=== PATIENT | male | born 1995 | race Caucasian/White ===

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

== ENCOUNTER → 2017-04-09 14:59 | Emergency (ER) | payer OTHER | END | disposition left against medical advice (07) | LOC: ED 14:59 | DX: J02.9 Acute pharyngitis, unspecified (principal); Z53.21 Procedure and treatment not carried out due to patient leaving prior to being seen by health care provider ==

== ENCOUNTER 2017-08-31 11:18 | Emergency (ER) | payer BC, OTHER ==
[2017-08-31 14:58] LABS: Hematocrit 42 % (42-52); Hemoglobin 14.4 g/dl (14.0-18.0); Mean Corpuscular Volume 87 fL (80-94); Red Blood Count 4.88 10^6/ul (4.0-5.4); White Blood Count 4.5 10^3/ul (3.5-10.8)
[2017-08-31 14:59] LABS: ABS Basophils 0 10^3/ul (0-0.2); ABS Eosinophils 0.1 10^3/ul (0-0.6); ABS Lymphocytes 1.7 10^3/ul (1.0-4.8); ABS Monocytes 0.4 10^3/ul (0-0.8); ABS Neutrophils 2.3 10^3/ul (1.5-7.7); ABS Nucleated RBC 0 10^3/ul; Eosinophil % 1.3 % (0-6); Mean Corpuscular HGB Conc 34 g/dl (31-36); Mean Corpuscular Hemoglobin 29 pg (27-31); Mean Platelet Volume 8.7 um3 (7.4-10.4); Nucleated Red Blood Cells % 0.3; Platelet Count 205 10^3/ul (150-450); Red Cell Distribution Width 14 % (10.5-15)
[2017-08-31 15:03] LABS: Urine Appearance Clear; Urine Blood Negative (Negative); Urine Color Yellow; Urine Ketones Negative (Negative); Urine Protein Negative (Negative); Urine Specific Gravity 1.024 (1.010-1.030); Urine Urobilinogen Negative (Negative)
[2017-08-31 15:05] LABS: INR 1.11 (0.77-1.02)
--- NOTE | 2017-08-31 15:23 | RAD ---
HISTORY: Cholecystitis COMPARISONS: CT dated July 01, 2016 TECHNIQUE: Multiple transverse and longitudinal ultrasound images were obtained of the right upper quadrant of the abdomen using grayscale and color Doppler imaging. FINDINGS: LIVER: The liver is normal in shape, size, contour, and echogenicity. There are no focal parenchymal masses. There is normal hepatopedal flow of the portal vein on Doppler imaging. BILIARY TREE: There is no intrahepatic or extrahepatic biliary dilatation. The common duct measures 0.1 cm. GALLBLADDER: The gallbladder is well-visualized. There is no cholelithiasis, gallbladder wall thickening, pericholecystic fluid, or sonographic Olsen sign. PANCREAS: The head of the pancreas is unremarkable. The tail of the pancreas is not well visualized secondary to overlying bowel gas. RIGHT KIDNEY: The right kidney is normal in shape, size, contour, and echogenicity. There is no hydronephrosis or nephrolithiasis. The right kidney measures 9.7 x 4.2 x 5.2 cm. AORTA AND IVC: The aorta and IVC are unremarkable. FLUID: There are no pleural effusions. There is no free fluid within the hepatorenal recess. OTHER FINDINGS: None. IMPRESSION: NO ACUTE SONOGRAPHIC PATHOLOGY OF THE VISUALIZED PORTION OF THE ABDOMEN.
[2017-08-31 15:35] LABS: EGFR Non-African American 147.7 (>60)
--- NOTE | 2017-08-31 16:06 | ED ---
Geovanny Park Stephanie, scribed for Lloyd Boone on 08/31/17 at 1434 . Abdominal Pain/Male - HPI Summary HPI Summary: The pt is a 21 y/o M presenting to the ED with c/o RUQ pain that began on . Symptoms include painful BP and green stools. The pt denies vomiting. Aggravating factors include PO intake. The pt states after he eats anything he feels abd tightness and nausea. The pt has a hx of nausea. HE states his symptoms began after switching his anxiety medications. The pt is currently having pain. - History of Current Complaint Chief Complaint: EDAbdPain Stated Complaint: ABD PAIN-2 WEEKS Time Seen by Provider: 08/31/17 14:10 Hx Obtained From: Patient Onset/Duration: Gradual Onset, Lasting Weeks - 2, Still Present Timing: Constant Severity Currently: Moderate Pain Intensity: 6 Pain Scale Used: 0-10 Numeric Location: Epigastric Radiates: No Aggravating Factor(s): Food Alleviating Factor(s): Nothing Associated Signs And Symptoms: Positive: Nausea. Negative: Vomiting - Allergies/Home Medications Allergies/Adverse Reactions: Allergies Allergy/AdvReac Type Severity Reaction Status Date / Time No Known Allergies Allergy Verified 08/31/17 11:23 Home Medications: Home Medications Paroxetine CR (NF) [Paxil CR (NF)] 12.5 mg PO DAILY 08/31/17 [History Confirmed 08/31/17] Venlafaxine EXT RELEASE CAP* [Effexor Xr CAP*] 75 mg PO DAILY 08/31/17 [History Confirmed 08/31/17] PMH/Surg Hx/FS Hx/Imm Hx Endocrine/Hematology History: Denies: Hx Diabetes Cardiovascular History: Denies: Hx Hypertension History: Denies: Hx Dialysis, Hx Renal Disease Sensory History: Denies: Hx Legally Blind EENT History: Denies: Hx Deafness - Surgical History Surgery Procedure, Year, and Place: NONE - Immunization History Date of Tetanus Vaccine: unk Date of Influenza Vaccine: fall 2015 Infectious Disease History: No Infectious Disease History: Denies: Traveled Outside the [place] in Last 30 Days - Family History Known Family History: Negative: Diabetes, Renal Disease - Social History Occupation: Student Lives: Dormitory/Roommates Alcohol Use: None Hx Substance Use: No Substance Use Type: Reports: None Hx Tobacco Use: No Smoking Status (MU): Never Smoked Tobacco Have You Smoked in the Last Year: No Review of Systems Negative: Fever Positive: Abdominal Pain, Nausea. Negative: Vomiting Negative: Slurred Speech All Other Systems Reviewed And Are Negative: Yes Physical Exam - Summary Physical Exam Summary: Appearance: Well appearing, no pain distress Skin: warm, dry, reflects adequate perfusion Head/face: normal Eyes: EOMI, BEN ENT: normal Neck: supple, non-tender Respiratory: CTA, breath sounds present Cardiovascular: RRR, pulses symmetrical Abdomen: mild epigastric tenderness, soft Bowel: present Musculoskeletal: normal, strength/ROM intact Neuro: normal, sensory motor intact, A&Ox3 Triage Information Reviewed: Yes Vital Signs On Initial Exam: Initial Vitals Temp Pulse Resp BP Pulse Ox 97.2 F 53 14 109/65 100 08/31/17 11:23 08/31/17 11:23 08/31/17 11:23 08/31/17 11:23 08/31/17 11:23 Vital Signs Reviewed: Yes Diagnostics - Vital Signs Vital Signs Temp Pulse Resp BP Pulse Ox 08/31/17 11:23 97.2 F 53 14 109/65 100 - Laboratory Lab Results: Lab Results 08/31/17 08/31/17 08/31/17 Range/Units 14:42 14:42 14:42 WBC 4.5 (3.5-10.8) 10^3/ul RBC 4.88 (4.0-5.4) 10^6/ul Hgb 14.4 (14.0-18.0) g/dl Hct 42 (42-52) % MCV 87 (80-94) fL MCH 29 (27-31) pg MCHC 34 (31-36) g/dl RDW 14 (10.5-15) % Plt Count 205 (150-450) 10^3/ul MPV 8.7 (7.4-10.4) um3 Neut % (Auto) 51.0 (38-83) % Lymph % (Auto) 38.0 (25-47) % Bryan % (Auto) 9.1 H (0-7) % Eos % (Auto) 1.3 (0-6) % Baso % (Auto) 0.6 (0-2) % Absolute Neuts (auto) 2.3 (1.5-7.7) 10^3/ul Absolute Lymphs (auto) 1.7 (1.0-4.8) 10^3/ul Absolute Monos (auto) 0.4 (0-0.8) 10^3/ul Absolute Eos (auto) 0.1 (0-0.6) 10^3/ul Absolute Basos (auto) 0 (0-0.2) 10^3/ul Absolute Nucleated RBC 0 10^3/ul Nucleated RBC % 0.3 INR (Anticoag Therapy) 1.11 H (0.77-1.02) APTT 28.9 (26.0-36.3) seconds Sodium 139 (139-145) mmol/L Potassium 3.7 (3.5-5.0) mmol/L Chloride 105 (101-111) mmol/L Carbon Dioxide 26 (22-32) mmol/L Anion Gap 8 (2-11) mmol/L BUN 11 (6-24) mg/dL Creatinine 0.69 (0.67-1.17) mg/dL Est GFR ( Amer) 190.0 (>60) Est GFR (Non-Af Amer) 147.7 (>60) BUN/Creatinine Ratio 15.9 (8-20) Glucose 77 (70-100) mg/dL Lactic Acid (0.5-2.0) mmol/L Calcium 9.8 (8.6-10.3) mg/dL Total Bilirubin 0.60 (0.2-1.0) mg/dL AST 30 (13-39) U/L ALT 12 (7-52) U/L Alkaline Phosphatase 104 (34-104) U/L C-Reactive Protein < 1.00 (< 5.00) mg/L Total Protein 7.3 (6.4-8.9) g/dL Albumin 4.5 (3.2-5.2) g/dL Globulin 2.8 (2-4) g/dL Albumin/Globulin Ratio 1.6 (1-3) Lipase 24 (11.0-82.0) U/L Urine Color Urine Appearance Urine pH (5-9) Ur Specific [place] (1.010-1.030) Urine Protein (Negative) Urine Ketones (Negative) Urine Blood (Negative) Urine Nitrate (Negative) Urine Bilirubin (Negative) Urine Urobilinogen (Negative) Ur Leukocyte Esterase (Negative) Urine Glucose (Negative) 04/26/18 04/26/18 Range/Units 14:42 14:42 WBC (3.5-10.8) 10^3/ul RBC (4.0-5.4) 10^6/ul Hgb (14.0-18.0) g/dl Hct (42-52) % MCV (80-94) fL MCH (27-31) pg MCHC (31-36) g/dl RDW (10.5-15) % Plt Count (150-450) 10^3/ul MPV (7.4-10.4) um3 Neut % (Auto) (38-83) % Lymph % (Auto) (25-47) % Bryan % (Auto) (0-7) % Eos % (Auto) (0-6) % Baso % (Auto) (0-2) % Absolute Neuts (auto) (1.5-7.7) 10^3/ul Absolute Lymphs (auto) (1.0-4.8) 10^3/ul Absolute Monos (auto) (0-0.8) 10^3/ul Absolute Eos (auto) (0-0.6) 10^3/ul Absolute Basos (auto) (0-0.2) 10^3/ul Absolute Nucleated RBC 10^3/ul Nucleated RBC % INR (Anticoag Therapy) (0.77-1.02) APTT (26.0-36.3) seconds Sodium (139-145) mmol/L Potassium (3.5-5.0) mmol/L Chloride (101-111) mmol/L Carbon Dioxide (22-32) mmol/L Anion Gap (2-11) mmol/L BUN (6-24) mg/dL Creatinine (0.67-1.17) mg/dL Est GFR ( Amer) (>60) Est GFR (Non-Af Amer) (>60) BUN/Creatinine Ratio (8-20) Glucose (70-100) mg/dL Lactic Acid 1.1 (0.5-2.0) mmol/L Calcium (8.6-10.3) mg/dL Total Bilirubin (0.2-1.0) mg/dL AST (13-39) U/L ALT (7-52) U/L Alkaline Phosphatase (34-104) U/L C-Reactive Protein (< 5.00) mg/L Total Protein (6.4-8.9) g/dL Albumin (3.2-5.2) g/dL Globulin (2-4) g/dL Albumin/Globulin Ratio (1-3) Lipase (11.0-82.0) U/L Urine Color Yellow Urine Appearance Clear Urine pH 7.0 (5-9) Ur Specific [place] 1.024 (1.010-1.030) Urine Protein Negative (Negative) Urine Ketones Negative (Negative) Urine Blood Negative (Negative) Urine Nitrate Negative (Negative) Urine Bilirubin Negative (Negative) Urine Urobilinogen Negative (Negative) Ur Leukocyte Esterase Negative (Negative) Urine Glucose Negative (Negative) Result Diagrams: 08/31/17 14:42 08/31/17 14:42 Lab Statement: Any lab studies that have been ordered have been reviewed, and results considered in the medical decision making process. - Additional Comments Diagnostic Additional Comments: US Gallbladder reveals: NO ACUTE SONOGRAPHIC PATHOLOGY OF THE VISUALIZED PORTION OF THE ABDOMEN. ED physician has reviewed this report. Re-Evaluation - Re-Evaluation First Eval Re-Evaluation Time: 15:55 Change: Unchanged - ED physician discussed the plan of discharge with the pt and the pt understands and agrees. Abdominal Pain Fem Course/Dx - Course Course Of Treatment: The pt is a 21 y/o M presenting to the ED with c/o RUQ pain that began on 08/17/17. Symptoms include painful BP and green stools. Gallbladder US is negative. The pt's pain is unlikely due to appendicitis or cholecystitis. - Diagnoses Differential Diagnosis/HQI/PQRI: Constipation, Gall Bladder Disease, Pancreatitis Provider Diagnoses: Abdominal pain Discharge - Sign-Out/Discharge Documenting (check all that apply): Discharge/Admit/Transfer - discharge - Discharge Plan Condition: Stable Disposition: HOME Patient Education Materials: Abdominal Pain (ED), Epigastric Pain (ED) Referrals: Torres Dumont MD [Medical Doctor] - 2 Days Additional Instructions: Return to ED for any new or worsening symptoms. - Billing Disposition and Condition Condition: STABLE Disposition: HOME The documentation as recorded by the Geovanny rodrigues Stephanie accurately reflects the service I personally performed and the decisions made by , Lloyd Boone.
[2017-08-31 16:09] VITALS: BP 112/64
== END 2017-08-31 16:08 | disposition home or self-care (01) ==
LOC: ED 11:18
DX: R10.11 Right upper quadrant pain (principal); R11.0 Nausea
CPT/HCPCS: 36415; 76705; 80053; 81003; 83605; 83690; 85025; 85610; 85730; 86140; 99282

== ENCOUNTER 2017-12-25 19:52 | Emergency (ER) | payer BC ==
[2017-12-25 22:13] LABS: ABS Basophils 0 10^3/ul (0-0.2); ABS Eosinophils 0.2 10^3/ul (0-0.6); ABS Lymphocytes 2.3 10^3/ul (1.0-4.8); ABS Monocytes 0.5 10^3/ul (0-0.8); ABS Neutrophils 3.9 10^3/ul (1.5-7.7); ABS Nucleated RBC 0 10^3/ul; Eosinophil % 2.8 % (0-6); Hematocrit 43 % (42-52); Hemoglobin 14.7 g/dl (14.0-18.0); Lymphocyte % 32.8 % (25-47); Mean Corpuscular HGB Conc 34 g/dl (31-36); Mean Corpuscular Hemoglobin 30 pg (27-31); Mean Corpuscular Volume 88 fL (80-94); Mean Platelet Volume 9.5 um3 (7.4-10.4); Nucleated Red Blood Cells % 0.1; Platelet Count 194 10^3/ul (150-450); Red Blood Count 4.86 10^6/ul (4.00-5.40); Red Cell Distribution Width 12 % (10.5-15); White Blood Count 6.9 10^3/ul (3.5-10.8)
[2017-12-25 22:39] LABS: EGFR Non-African American 126.4 (>60)
[2017-12-25 22:45] LABS: Urine Appearance Clear; Urine Color Straw; Urine Red Blood Cell Trace(0-2/hpf) (Absent); Urine White Blood Cell Absent (Absent)
--- NOTE | 2017-12-25 22:45 | ED ---
Abdominal Pain/Male - HPI Summary HPI Summary: Pt is 21 y/o M who presents to ED c/o abdominal pain for past 5 days. PMHx of GERD and abdominal problems; has had 2 or 3 endoscopies in past couple years, but never had a colonoscopy. The pain began in RLQ and then shifted to RUQ and now the pain is in LUQ. Describes the pain as constant and rates pain 7/10 in severity. Notes back pain, decreased appetite, worsened reflux, and diarrhea today. Denies urination issues. Denies any surgeries on abdomen. - History of Current Complaint Chief Complaint: EDAbdPain Stated Complaint: ABD PAIN DIARRHEA Time Seen by Provider: 12/25/17 22:00 Hx Obtained From: Patient Onset/Duration: Lasting Days, Still Present Timing: Constant Severity Currently: Moderate Pain Intensity: 7 Pain Scale Used: 0-10 Numeric Location: Discrete At: RUQ, Discrete At: RLQ, Discrete At: LUQ Radiates: Yes Radiates to: Back Associated Signs And Symptoms: Positive: Back Pain, Decreased Appetite, Diarrhea. Negative: Urinary Symptoms - Allergies/Home Medications Allergies/Adverse Reactions: Allergies Allergy/AdvReac Type Severity Reaction Status Date / Time No Known Allergies Allergy Verified 12/25/17 19:57 PMH/Surg Hx/FS Hx/Imm Hx Endocrine/Hematology History: Denies: Hx Diabetes Cardiovascular History: Denies: Hx Hypertension History: Denies: Hx Dialysis, Hx Renal Disease Sensory History: Denies: Hx Legally Blind, Hx Deafness Opthamlomology History: Denies: Hx Legally Blind - Surgical History Surgery Procedure, Year, and Place: NONE - Immunization History Date of Tetanus Vaccine: unk Date of Influenza Vaccine: fall 2015 Infectious Disease History: No Infectious Disease History: Denies: Traveled Outside the [place] in Last 30 Days - Family History Known Family History: Negative: Diabetes, Renal Disease - Social History Alcohol Use: None Hx Substance Use: No Substance Use Type: Reports: None Hx Tobacco Use: No Smoking Status (MU): Never Smoked Tobacco Have You Smoked in the Last Year: No Review of Systems Positive: Abdominal Pain, Diarrhea Negative: dysuria Positive: Other - lower back pain All Other Systems Reviewed And Are Negative: Yes Physical Exam - Summary Physical Exam Summary: Appearance: Well-appearing, Well-nourished, lying in bed comfortably Skin: Warm, dry, no obvious rash Eyes: sclera anicteric, no conjunctival pallor ENT: mucous membranes moist, pharynx appears normal Neck: Supple, nontender Respiratory: Clear to auscultation, no signs of respiratory distress Cardiovascular: Normal S1, S2. No murmurs. Normal distal pulses in tibial and radial bilaterally. Abdomen: Soft, nontender, normal active bowel sounds present Musculoskeletal: Normal, Strength/ROM Intact Neurological: A&Ox3, awake and alert, mentation is normal, speech is fluent and appropriate Psychiatric: affect is normal, does not appear anxious or depressed Triage Information Reviewed: Yes Vital Signs On Initial Exam: Initial Vitals Temp Pulse Resp BP Pulse Ox 98.1 F 69 18 120/74 100 12/25/17 19:54 12/25/17 19:54 12/25/17 19:54 12/25/17 19:54 12/25/17 19:54 Vital Signs Reviewed: Yes Diagnostics - Vital Signs Vital Signs Temp Pulse Resp BP Pulse Ox 12/25/17 22:35 58 120/72 90 12/25/17 22:05 63 121/77 100 12/25/17 19:54 98.1 F 69 18 120/74 100 - Laboratory Lab Results: Lab Results 12/25/17 12/25/17 12/25/17 Range/Units 21:59 21:59 22:10 WBC 6.9 (3.5-10.8) 10^3/ul RBC 4.86 (4.00-5.40) 10^6/ul Hgb 14.7 (14.0-18.0) g/dl Hct 43 (42-52) % MCV 88 (80-94) fL MCH 30 (27-31) pg MCHC 34 (31-36) g/dl RDW 12 (10.5-15) % Plt Count 194 (150-450) 10^3/ul MPV 9.5 (7.4-10.4) um3 Neut % (Auto) 56.3 (38-83) % Lymph % (Auto) 32.8 (25-47) % [place] % (Auto) 7.6 H (0-7) % Eos % (Auto) 2.8 (0-6) % Baso % (Auto) 0.5 (0-2) % Absolute Neuts (auto) 3.9 (1.5-7.7) 10^3/ul Absolute Lymphs (auto) 2.3 (1.0-4.8) 10^3/ul Absolute Monos (auto) 0.5 (0-0.8) 10^3/ul Absolute Eos (auto) 0.2 (0-0.6) 10^3/ul Absolute Basos (auto) 0 (0-0.2) 10^3/ul Absolute Nucleated RBC 0 10^3/ul Nucleated RBC % 0.1 Sodium 139 (135-145) mmol/L Potassium 4.5 (3.5-5.0) mmol/L Chloride 103 (101-111) mmol/L Carbon Dioxide 29 (22-32) mmol/L Anion Gap 7 (2-11) mmol/L BUN 9 (6-24) mg/dL Creatinine 0.79 (0.67-1.17) mg/dL Est GFR ( Amer) 152.9 (>60) Est GFR (Non-Af Amer) 126.4 (>60) BUN/Creatinine Ratio 11.4 (8-20) Glucose 88 (70-100) mg/dL Calcium 10.5 H (8.6-10.3) mg/dL Total Bilirubin 0.50 (0.2-1.0) mg/dL AST 24 (13-39) U/L ALT 13 (7-52) U/L Alkaline Phosphatase 126 H (34-104) U/L Total Protein 8.0 (6.4-8.9) g/dL Albumin 5.1 (3.2-5.2) g/dL Globulin 2.9 (2-4) g/dL Albumin/Globulin Ratio 1.8 (1-3) Lipase 25 (11.0-82.0) U/L Urine Color Straw Urine Appearance Clear Urine pH Pending Ur Specific [place] Pending Urine Protein Pending Urine Ketones Pending Urine Blood Pending Urine Nitrate Pending Urine Bilirubin Pending Urine Urobilinogen Pending Ur Leukocyte Esterase Pending Urine WBC (Auto) Absent (Absent) Urine RBC (Auto) Trace(0-2/hpf) (Absent) Urine Bacteria Absent (Absent) Urine Glucose Pending Urine Ascorbic Acid Pending Result Diagrams: 12/25/17 21:59 12/25/17 21:59 Lab Statement: Any lab studies that have been ordered have been reviewed, and results considered in the medical decision making process. - Ultrasound No standard instances Ultrasound Interpretation Completed By: Radiologist - Appendix US. IMPRESSION: Nonvisualized appendix with no secondary findings to suggest appendicitis. ED Physician reviewed this report. Abdominal Pain Fem Course/Dx - Course Course Of Treatment: This is a young man with a history of chronic abdominal pain, alternating diarrhea and constipation, all very suggestive of irritable bowel syndrome. His present symptoms are felt to be very atypical for appendicitis in that it began in the right lower quadrant and then migrated to the right upper and left upper quadrants. He has a very benign abdominal exam, a normal white blood cell count, and an ultrasound that does not show any signs of appendicitis. I do not believe he needs further imaging at this point, I reassured him that there does not appear to be any evidence of a serious intra- abdominal condition and encouraged him to follow-up with a local [facility] analyst for further care of his chronic symptoms. - Diagnoses Provider Diagnoses: Chronic abdominal pain Discharge - Sign-Out/Discharge Documenting (check all that apply): Patient Departure - Discharge Plan Condition: Good Disposition: HOME Patient Education Materials: Irritable Bowel Syndrome (ED) Referrals: [facility] [[employer] APPLICATION, OTHER] - Adria Ryan MD [Medical Doctor] - - Billing Disposition and Condition Condition: GOOD Disposition: Home - Attestation Statements Document Initiated by Janetibkassandra: Yes Documenting Scribe: Fercho Heath Provider For Whom Janetibe is Documenting (Include Credential): Fer Tavarez MD Scribe Attestation: Fercho Park, scribed for Fer Tavarez MD on 12/26/17 at 1948. Scribe Documentation Reviewed: Yes Provider Attestation: The documentation as recorded by the Fercho rodrigues accurately reflects the service I personally performed and the decisions made by me, Fer Tavarez MD
[2017-12-25 22:49] LABS: Urine Blood Negative (Negative); Urine Ketones Negative (Negative); Urine Protein Negative (Negative); Urine Specific Gravity 1.006 (1.010-1.030); Urine Urobilinogen Negative (Negative)
--- NOTE | 2017-12-25 23:52 | RAD ---
EXAM: US Abdomen Limited, Appendix CLINICAL HISTORY: 21 years old, male; Pain; Other: Rlq; Additional info: Rlq pain TECHNIQUE: Real-time ultrasound of the right lower quadrant with image documentation. COMPARISON: GB US GALL BLADDER 2017-08-31 14:40 FINDINGS: Appendix: Appendix not visualized. No right lower quadrant hyperemia, rebound pain, or abnormal lymph nodes. Free fluid: No free fluid. IMPRESSION: Nonvisualized appendix with no secondary findings to suggest appendicitis.
[2017-12-26 02:15] VITALS: BP 123/82
== END 2017-12-26 02:15 | disposition home or self-care (01) ==
LOC: ED 19:52
DX: R10.31 Right lower quadrant pain (principal); G89.29 Other chronic pain
CPT/HCPCS: 36415; 76705; 80053; 81003; 83690; 85025; 99284